=== PATIENT | female | born 1960 | race Caucasian/White ===

== ENCOUNTER → 2020-04-01 | Outpatient (CLI) | payer OTHER | END | disposition home or self-care (01) | LOC: CVU 10:32 | PROVIDERS: ATTEND Internal Medicine Cardiovascular Disease | DX: I06.1 Rheumatic aortic insufficiency (principal); I48.91 Unspecified atrial fibrillation | CPT/HCPCS: 93306; 93356 ==

== ENCOUNTER → 2020-09-28 | Outpatient (CLI) | payer OTHER | END | disposition home or self-care (01) | LOC: STAR 09:14 | PROVIDERS: ATTEND Internal Medicine Cardiovascular Disease | DX: Z20.822 Contact with and (suspected) exposure to COVID-19 (principal) | CPT/HCPCS: U0003; U0005 ==

== ENCOUNTER → 2020-09-28 | Outpatient (CLI) | payer OTHER ==
[~2020-09-28] MED LIST: OMNIPAQUE 350 MG/ML, 150 ML BOTTLE ONE
== END | disposition home or self-care (01) ==
LOC: CFH 08:22
PROVIDERS: ATTEND Internal Medicine Cardiovascular Disease
DX: I48.91 Unspecified atrial fibrillation (principal)
CPT/HCPCS: 71046; 75572; Q9967

== ENCOUNTER 2020-10-01 06:00 | Observation (INO) | payer OTHER ==
[~2020-10-01] VITALS: Ht 152.4 cm; Wt 65.8 kg
[2020-10-01] MEDS ORDERED: SODIUM CHLORIDE 0.9% 1,000 ML IV SCH (06:30)
[2020-10-01] MEDS ORDERED: SODIUM CHLORIDE 0.9% 1,000 ML IV ONE (06:30)
[2020-10-01] MEDS ORDERED: MULT1TAB58 PO (06:42)
[2020-10-01] MEDS ORDERED: ALBU8.5H8 INH (06:42)
[2020-10-01] MEDS ORDERED: FLEC50TA25 PO (06:42)
[2020-10-01 06:43] VITALS: BP 117/80
[2020-10-01] MEDS ORDERED: LIDOCAINE 1%, 20ML ONE (07:15)
[2020-10-01 07:29] LABS: BASOPHILS % (AUTO) 2 % (0-1); EOSINOPHILS % (AUTO) 2 % (1-7); LYMPHOCYTES % (AUTO) 32 % (22-44); MEAN CORPUSCULAR HEMOGLOBIN 31.8 pg (27.0-34.8); MEAN CORPUSCULAR HGB CONC 33.9 g/dL (32.4-35.8); MEAN PLATELET VOLUME 7.7 fL (7.4-10.4); MONOCYTES % (AUTO) 9 % (2-9); NEUTROPHILS % (AUTO) 55 % (42-75); PLATELET COUNT 235 x10^3/uL (130-400); RED BLOOD COUNT 4.98 x10^6/uL (3.82-5.3); RED CELL DISTRIBUTION WIDTH 13.6 % (9.6-15.2)
[2020-10-01] MEDS ORDERED: MIDAZOLAM 1 MG/ML, 2ML ONE (07:37)
[2020-10-01 07:38] LABS: ANION GAP 3 mmol/L (5-15); CALCIUM 9.3 mg/dL (8.5-10.1); CHLORIDE 110 mmol/L (98-107); CREATININE 0.98 mg/dL (0.55-1.02); INTERNATIONAL NORMALIZED RATIO 1.04 (0.93-1.1); PROTHROMBIN TIME 11.1 Seconds (9.6-11.5)
[2020-10-01] MEDS ORDERED: FENTANYL PF 250 MCG/5ML ONE (07:38)
[2020-10-01] MEDS ORDERED: ISOPROTERENOL 0.2MG/ML, 5ML ONE (09:43)
[2020-10-01] MEDS ORDERED: HEPARIN 1,000 UNITS/ML, 10ML ONE ×2 (10:58)
[2020-10-01] MEDS ORDERED: ROCURONIUM 10MG/ML,5ML ONE (10:58)
[2020-10-01] MEDS ORDERED: PHENYLEPHRINE 10 MG/ML ONE ×2 (10:58)
[2020-10-01] MEDS ORDERED: ONDANSETRON 2MG/ML, 2ML ONE (10:59)
[2020-10-01] MEDS ORDERED: SUCCINYLCHOLINE 20 MG/ML, 10ML ONE (10:59)
[2020-10-01] MEDS ORDERED: DEXAMETHASONE 4 MG/ML, 1ML ONE (10:59)
[2020-10-01] MEDS ORDERED: ONDANSETRON 2MG/ML, 2ML IVPush PRN ×2 (12:00→12:30)
[2020-10-01] MEDS ORDERED: ZOLPIDEM 5MG TABLET PO PRN (12:00)
[2020-10-01] MEDS: APIXABAN 5 MG TABLET PO SCH ×2 (12:00→20:42)
[2020-10-01] MEDS ORDERED: ACETAMINOPHEN 325 MG TABLET PO PRN ×2 (12:00→12:30)
[2020-10-01] MEDS ORDERED: APIXABAN 5 MG TABLET ONE (12:17)
[2020-10-01] MEDS ORDERED: MEPERIDINE/PF 25MG/0.5ML IVPush PRN (12:30)
[2020-10-01] MEDS ORDERED: FENTANYL PF 100 MCG/2ML IV PRN (12:30)
[2020-10-01] MEDS ORDERED: OXYcodone 5 MG/5 ML ORAL.SOL UDC PO PRN (12:30)
[2020-10-01] MEDS ORDERED: EPHEDRINE 50 MG/ML, 1ML IM PRN (12:30)
[2020-10-01] MEDS ORDERED: EPHEDRINE 50 MG/ML, 1ML IVPush PRN (12:30)
[2020-10-01] MEDS ORDERED: HYDROmorphone 1 MG/ML, 1ML INJ IVPush PRN (12:30)
[2020-10-01] MEDS ORDERED: DIPHENHYDRAMINE 50 MG/ML, 1ML IVPush PRN (12:30)
[2020-10-01] MEDS ORDERED: DIAZEPAM 5 MG/ML, 2ML IVPush PRN (12:30)
[2020-10-01] MEDS ORDERED: LABETALOL 5MG/ML, 20ML IV PRN (12:30)
[2020-10-01] MEDS ORDERED: PROMETHAZINE 25 MG/ML, 1ML IVPush PRN (12:30)
[2020-10-01 13:28] VITALS: BP 105/69
[2020-10-01 19:30] VITALS: BP 100/67
[2020-10-01] MEDS: COLCHICINE 0.6 MG CAPSULE PO SCH (20:42)
[2020-10-01 20:49] VITALS: BP 111/70
[2020-10-02 00:55] VITALS: BP 94/57
[2020-10-02 06:14] VITALS: BP 93/62
[2020-10-02 07:20] VITALS: BP 98/63
[2020-10-02] MEDS ORDERED: FLECAINIDE 50MG TABLET PO SCH (09:00)
[2020-10-02] MEDS ORDERED: MULTIVITAMIN 1 TABLET PO SCH (09:00)
[2020-10-02] MEDS ORDERED: APIX5TAB PO (09:52)
[2020-10-02] MEDS ORDERED: COLC0.6C3 PO ×2 (09:52)
[2020-10-02] MEDS: COLCHICINE 0.6 MG CAPSULE PO SCH (10:08)
[2020-10-02] MEDS: APIXABAN 5 MG TABLET PO SCH (10:08)
[2020-10-02] MEDS ORDERED: FLEC50TA25 PO (10:08)
[2020-10-02 12:23] VITALS: BP 111/75
[2020-10-02] MEDS ORDERED: DIPHENHYDRAMINE 12.5MG/5ML, 10ML UDC PO ONE ×2 (12:30→13:00)
[2020-10-02 12:35] VITALS: BP 111/75
== END 2020-10-02 14:52 | disposition home or self-care (01) ==
LOC: CACL 06:00 → ORIP 11:47 → 5SO 12:47
PROVIDERS: ADMIT Internal Medicine Cardiovascular Disease; ATTEND Internal Medicine Cardiovascular Disease
DX: I48.91 Unspecified atrial fibrillation (principal); I48.3 Typical atrial flutter; I48.4 Atypical atrial flutter; Z88.0 Allergy status to penicillin; Z79.899 Other long term (current) drug therapy
CPT/HCPCS: 36415; 80048; 82962; 85025; 85347; 85610; 93306; 93312; 93321; 93325; 93623; 93655; 93656; 93657; 93662; C1730; C1732; C1759; C1766; C1893; C1894; G0378; J0330; J1100; J1644; J2250; J2370; J2405; J3010; J3490